=== PATIENT | female | born 1990 | race Caucasian/White ===

== ENCOUNTER 2022-08-26 08:36 | Emergency (ER) | payer MEDICAID, OTHER ==
[~2022-08-26] VITALS: Ht 152.4 cm; Wt 64.0 kg
[2022-08-26] MEDS ORDERED: IBUPROFEN 600MG TABLET PO ONE (10:15)
[2022-08-26 10:20] VITALS: BP 119/80
[2022-08-26] MEDS ORDERED: PENICILLIN G BENZATHINE 1,200,000 UNITS/2ML SYR IM ONE (15:00)
[2022-08-26] MEDS ORDERED: IBUP-2029 MT (15:03)
== END 2022-08-26 15:34 | disposition home or self-care (01) ==
LOC: ER 08:55
DX: J02.0 Streptococcal pharyngitis (principal); R56.9 Unspecified convulsions; Z88.8 Allergy status to other drugs, medicaments and biological substances; Z98.890 Other specified postprocedural states
CPT/HCPCS: 87430; 96372; 99283; J0561